=== PATIENT | male | born 1955 | race Caucasian/White ===

== ENCOUNTER 2017-09-12 04:22 | Emergency (ER) | payer OTHER ==
[~2017-09-12] VITALS: Ht 170.2 cm; Wt 70.3 kg
[2017-09-12 04:26] VITALS: BP_SYST 130
--- NOTE | 2017-09-12 04:26 | NUR ---
Patient to ER [facility]ALL[facility] to for evaluation. Side rails up.
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
--- NOTE | 2017-09-12 04:42 | NUR ---
Written and verbal consent obtained from patient for blood alcohol, name and verified by patient. Disinfected patient's skin with iodine that did not contain alcohol or other volatile organic compound. Collected the blood from the subject named by venipuncture, in the presence of Officer benniege number [id number]. Used a sterile, dry hypodermic needle and dry vacuum blood collection. The dry vacuum blood collection was supplied by the officer named above. Withdrew a specimen of blood from right AC of the subject named above. Inverted the blood tube several times to ensure that the preservative and anticoagulant were thoroughly mixed in the blood specimen. I initialed the blood tube label for identification. The labeled blood tube was handed directly to the Officer named above. The blood tube stopper remained in place while I had possession of the blood tube. The Officer placed tube into envelope and sealed it in my presence. Envelope initialed by myself and Officer named above. Patient tolerated well, bandage applied, and bleeding controlled.
--- NOTE | 2017-09-12 05:05 | NUR ---
ER Dr. Westbrook at bedside examining patient.
[2017-09-12 05:10] VITALS: BP_SYST 128
--- NOTE | 2017-09-12 05:10 | NUR ---
Patient was released to custody of family and verbalizes understanding. ER MD discussed with patient the results of evaluation provided. Patient is in stable condition. ID arm band was removed. Patient was educated on pain management and to follow up with PMD. Pain Scale 0/10. Opportunity for questions provided and answered.
== END 2017-09-12 05:10 | disposition home or self-care (01) ==
LOC: SED 04:22
DX: Z02.89 Encounter for other administrative examinations (principal); V47.9XXA Unspecified car occupant injured in collision with fixed or stationary object in traffic accident, initial encounter; Y93.89 Activity, other specified; Y92.410 Unspecified street and highway as the place of occurrence of the external cause; Y99.8 Other external cause status